=== PATIENT | female | born 1940 | race Two or more races ===

== ENCOUNTER 2023-05-23 05:35 | Day surgery (SDC) | payer OTHER ==
[~2023-05-23] VITALS: Ht 157.5 cm; Wt 59.0 kg
[~2023-05-23 05:35] MED LIST: EVISTA60 MG PO; LIPITO PO; LISINOPRIL5 MG PO; NABUMETONE500 MG PO; PERCOCET 5/3251 TAB PO; ZETIA10 MG PO; [UNRECOGNIZED DRUG - OTHER] PO
== END 2023-05-23 12:00 | disposition home or self-care (01) ==
LOC: CIR.AMB 05:35
PROVIDERS: ATTEND Otolaryngology Otology & Neurotology
DX: H66.92 Otitis media, unspecified, left ear (principal); H72.02 Central perforation of tympanic membrane, left ear; Z20.822 Contact with and (suspected) exposure to COVID-19